=== PATIENT | female | born 1980 | race African-American/Black ===

== ENCOUNTER 2018-03-29 14:56 | Emergency (ER) | payer MEDICAID ==
[~2018-03-29] VITALS: Ht 162.6 cm; Wt 70.0 kg
[2018-03-29] MEDS ORDERED: TRAZ-129 PO (15:00)
[2018-03-29] MEDS ORDERED: OLANZAPINE 10MG TABLET ODT PO ONE (15:45)
[2018-03-29] MEDS ORDERED: LORAZEPAM 1MG TABLET PO ONE (15:45)
[2018-03-29 16:09] LABS: EOSINOPHILS % 1.3 % (0.0-5.0); HEMATOCRIT. 36.5 % (36.0-48.0); LYMPHOCYTES % 27.6 % (20.0-50.0); MEAN CORPUSCULAR HEMOGLOBIN 24.4 pg (28.0-32.0); MEAN CORPUSCULAR VOLUME 74.5 fL (81.0-99.0); MEAN PLATELET VOLUME 9.5 fl (7.4-10.4); MONOCYTES % 8.1 % (2.0-8.0); PLATELET 295 x1000/uL (130-400); RED CELL DISTRIBUTION WIDTH 16.3 % (11.6-14.6)
[2018-03-29 16:14] LABS: CHLORIDE 104 mEq/L (98-107)
[2018-03-29 16:17] LABS: ETHANOL BLOOD < 10 mg/dL
[2018-03-29] MEDS ORDERED: POTASSIUM CHLORIDE 20MEQ TABLET SR PO ONE (16:30)
[2018-03-29 16:31] LABS: HCG SCREEN NEGATIVE
[2018-03-29 16:37] LABS: *BARBITURATES SCREEN URINE NEGATIVE (NEGATIVE)
[2018-03-29 16:38] LABS: *BENZODIAZEPINES SCREEN URINE NEGATIVE (NEGATIVE); *COCAINE SCREEN URINE NEGATIVE (NEGATIVE); CANNABINOID URINE SCREEN NEGATIVE (NEGATIVE); METHADONE URINE SCREEN NEGATIVE (NEGATIVE); OPIATES URINE SCREEN NEGATIVE (NEGATIVE); PHENCYCLIDINE URINE SCREEN NEGATIVE (NEGATIVE)
[2018-03-29 16:52] LABS: *AMPHETAMINES SCREEN URINE PRESUMTIVE POSITIVE (NEGATIVE)
[2018-03-31] MEDS ORDERED: OLANZAPINE 5MG TABLET ODT PO ONE (18:45)
[2018-03-31] MEDS ORDERED: LORAZEPAM 1MG TABLET PO ONE (18:45)
[2018-04-01 04:57] VITALS: BP 111/76
== END 2018-04-01 06:42 | disposition home or self-care (01) ==
LOC: ER 15:26
DX: F31.9 Bipolar disorder, unspecified (principal); R45.851 Suicidal ideations; F15.10 Other stimulant abuse, uncomplicated; Z88.0 Allergy status to penicillin; Z91.19 Patient's noncompliance with other medical treatment and regimen
CPT/HCPCS: 36415; 80048; 80305; 80307; 80329; 84703; 85025; 99285; G0482